=== PATIENT | male | born 1955 | race Caucasian/White ===

== ENCOUNTER 2019-07-06 13:24 | Emergency (ER) | payer OTHER ==
--- NOTE | 2019-07-06 13:53 | PDOC ---
Rapid Medical Evaluation Time Seen by Provider: 07/06/19 13:51 Medical Evaluation: 07/06/19 13:51 I have performed a brief in-person evaluation of this patient. 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 He washed it out prior to coming in. Pertinent physical exam findings: L eye redness and tearing The patient will proceed to the ED for further evaluation. Discharge Disposition - Diagnosis Chemical insult, eye - Referrals - Patient Instructions - Post Discharge Activity
[2019-07-06 14:02] VITALS: BP 147/88; PULSE 81; TEMP 98.2; BMI 34.4
[2019-07-06] MEDS ORDERED: TETRACAINE 0.5% HCL 0.6ML DROPPER.BOTTLE OS ONE (14:16)
[2019-07-06] MEDS ORDERED: TETRACAINE 0.5% OPHTH SOLN 2 ML BOTTLE ONE (14:17)
--- NOTE | 2019-07-06 14:22 | PDOC ---
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 Patient wears corrective lenses and was wearing his corrective lenses when accident happened. Patient reported irrigating eye right after the accident in the eyewash station. Report mild blurry vision in left eye with mild pain. Denies dizziness. Denies any other symptoms Is this a multiple visit Asthma Patient?: No Timing/Duration: 1-3 hours Past History - Past Medical History Allergies/Adverse Reactions: Allergies Allergy/AdvReac Type Severity Reaction Status Date / Time No Known Allergies Allergy Verified 07/06/19 13:52 Home Medications: Ambulatory Orders Peg 400/Hypromellose/Glycerin [Artificial Tears Drops] 4 drop OS Q6H 3 Days #1 bottle 07/06/19 COPD: No - Surgical History Appendectomy: Yes - Psycho Social/Smoking Cessation Hx Smoking History: Never smoked Review of Systems - Review of Systems Able to Perform ROS?: Yes HEENTM: Yes: Symptoms Reported, See HPI, Eye Pain (left eye pain), Blurred Vision (left eye), Tearing (left eye), Recent change in vision (left eye). No: Double Vision Respiratory: No: Symptoms reported ABD/GI: No: Symptoms Reported, Nausea, Vomiting All Other Systems: Reviewed and Negative *Physical Exam - Vital Signs Last Vital Signs Temp Pulse Resp BP Pulse Ox 98.2 F 81 18 147/88 97 07/06/19 13:53 07/06/19 13:53 07/06/19 13:53 07/06/19 13:53 07/06/19 13:53 - Physical Exam General Appearance: Yes: Nourished, Appropriately Dressed. No: Apparent Distress HEENT: positive: EOMI, GEMMA, Normal ENT Inspection, Pale Conjunctivae (mildly injected left conjunciva. right conjunctiva clear), Other (no evidence of corneal abrasion or injury on exam with flourescein stain and ophthalmic tetracaine) Neck: positive: Supple Respiratory/Chest: positive: Normal Breath Sounds. negative: Respiratory Distress, Accessory Muscle Use Cardiovascular: positive: Regular Rhythm, Regular Rate Musculoskeletal: positive: Normal Inspection Extremity: positive: Normal Inspection Integumentary: positive: Normal Color Neurologic: positive: Fully Oriented, Alert, Normal Mood/Affect, Normal Response Medical Decision Making - Medical Decision Making 07/06/19 15:01 Patient with no significant past medical history presented with complaint of left eye pain status post accidentally spilling hard tile setter from a boat yard 2 hours prior to arrival. Patient wears corrective lenses and was wearing his corrective lenses when accident happened. Patient reported irrigating eye right after the accident in the eyewash station. Report mild blurry vision in left eye with mild pain. Denies dizziness. Denies any other symptoms Exam significant for mildly injected left conjunctivae with no evidence of corneal abrasion on exam with fluorescein stain. pH of left eye was 7 Patient reported improvement in pain after tetracaine in left eye. Left eye irrigated again at eyewash station and patient reported improvement in symptoms. Patient stable for discharge on artificial tears to help lubricate eye with ophthalmology follow-up as needed. Patient stable for discharge Discharge - Discharge Information Problems reviewed: Yes Clinical Impression/Diagnosis: Chemical insult, eye Qualifiers: Encounter type: initial encounter Laterality: left Qualified Code(s): T26.92XA - Corrosion of left eye and adnexa, part unspecified, initial encounter Condition: Stable Disposition: HOME - Admission No - Additional Discharge Information Prescriptions: Peg 400/Hypromellose/Glycerin [Artificial Tears Drops] 4 drop OS Q6H 3 Days #1 bottle - Follow up/Referral Referrals: Jez Montilla MD [Staff Physician] - - Patient Discharge Instructions Patient Printed Discharge Instructions: How to Instill Eye Drops Additional Instructions: there was no corneal abrasions or scarring in left eye on exam. Your pH of the left eye is 7 which is normal. Use prescribed aertificial drops to help lubricate eye for the next 3 days. Follow-up with referred quick service technician if symptoms of blurry vision persist for more than 3 days - Post Discharge Activity
== END 2019-07-06 14:54 | disposition home or self-care (01) ==
LOC: JER 13:24
PROC: 3E1CX8Z Irrigation of Eye using Irrigating Substance (ICD-10-PCS; principal; 2019-07-06)
DX: S05.8X2A Other injuries of left eye and orbit, initial encounter (principal); T26.82XA Corrosions of other specified parts of left eye and adnexa, initial encounter; Y93.89 Activity, other specified; Y92.69 Other specified industrial and construction area as the place of occurrence of the external cause; Y99.0 Civilian activity done for income or pay
CPT/HCPCS: 99281-25